=== PATIENT | female | born 1990 | race Hispanic/Latino ===

== ENCOUNTER 2017-11-07 02:09 | Emergency (ER) | payer SELFPAY ==
[~2017-11-07] VITALS: Ht 162.6 cm; Wt 122.5 kg
[2017-11-07 03:27] VITALS: BP 128/70
[2017-11-07] MEDS ORDERED: BACITRACIN ZINC 0.9GM TP ONE (03:30)
--- NOTE | 2017-11-07 05:40 | Consultation ---
DATE OF CONSULTATION: NO DICTATION, LENGTH 0:2 Job#: [id number]
== END 2017-11-07 03:33 | disposition home or self-care (01) ==
LOC: ER 02:09
DX: L03.312 Cellulitis of back [any part except buttock and flank] (principal); E05.90 Thyrotoxicosis, unspecified without thyrotoxic crisis or storm
CPT/HCPCS: 99282

== ENCOUNTER 2018-05-25 08:23 | Observation (INO) | payer OTHER ==
[~2018-05-25] VITALS: Ht 162.6 cm; Wt 118.0 kg
[2018-05-25] MEDS ORDERED: MORPHINE SULFATE 2 MG/ML SYR IV STA (09:02)
[2018-05-25] MEDS ORDERED: ONDANSETRON HCL INJ 2 MG/ML VIAL IV STA (09:02)
[2018-05-25] MEDS ORDERED: SODIUM CHLORIDE 0.9% 1000ML 1,000 ML IV SCH ×2 (11:15→11:16)
[2018-05-25] MEDS ORDERED: PIPER-TAZ 3.375 GM 50 ML IV ONE (11:15)
[2018-05-25] MEDS ORDERED: SODIUM CHLORIDE FLUSH 10 ML SYR INJ PRN (11:30)
[2018-05-25] MEDS ORDERED: MIDAZOLAM HCL 2 MG/2 ML VIAL ONE (12:28)
[2018-05-25] MEDS ORDERED: FENTANYL CITRATE/PF 100MCG/2 ML INJ ONE (12:28)
[2018-05-25] MEDS ORDERED: ONDANSETRON HCL INJ 2 MG/ML VIAL IV NR (13:00)
[2018-05-25] MEDS ORDERED: BUPIVACAINE 0.25%/EPI 30ML SDV INJ ONE (13:41)
[2018-05-25] MEDS ORDERED: GLYCOPYRROLATE INJ 1MG/ 5 ML SYR ONE (15:17)
[2018-05-25] MEDS ORDERED: NEOSTIGMINE 5 MG/5ML SYR ONE (15:17)
[2018-05-25] MEDS ORDERED: SEVOFLURANE INHAL SOLN 250 ML PEN BTL ONE (15:17)
[2018-05-25] MEDS ORDERED: DEXAMETHASONE SOD PHOS INJ 4 MG/ML VIAL ONE (15:17)
[2018-05-25] MEDS ORDERED: ONDANSETRON HCL INJ 2 MG/ML VIAL ONE (15:17)
[2018-05-25] MEDS ORDERED: PROPOFOL IV EMULSION 10 MG/ML 20 ML VIAL ONE (15:17)
[2018-05-25] MEDS ORDERED: LIDOCAINE HCL 2% LOCAL INJ 5 ML SDV VIAL INJ ONE (15:17)
[2018-05-25] MEDS ORDERED: ROCURONIUM BROMIDE 10 MG/ML 5ML VIAL ONE (15:17)
[2018-05-25] MEDS ORDERED: LEVOFLOXACIN 500MG/D5W 100ML IV ONE (15:19)
[2018-05-25 16:00] VITALS: BP 136/84
[2018-05-25] MEDS: DEXTROSE 5%/LACTATED RINGERS 1,000 ML IV SCH (16:17)
[2018-05-25] MEDS ORDERED: PANTOPRAZOLE 40 MG 10ML VIAL IV SCH (16:30)
[2018-05-25] MEDS: PIPER-TAZ 3.375 GM 50 ML IV SCH (18:46)
[2018-05-25] MEDS: HYDROCODONE/APAP 7.5MG-325MG 1 EA TAB PO PRN (18:50)
[2018-05-25 18:53] VITALS: BP 136/84
[2018-05-25] MEDS: HYDROMORPHONE 1MG/1ML INJ IV PRN ×2 (19:35→22:51)
[2018-05-25 20:00] VITALS: BP 113/65
--- NOTE | 2018-05-25 20:06 | Operative Report ---
DATE OF PROCEDURE: May 25, 2018 PREOPERATIVE DIAGNOSIS: Acute cholecystitis secondary to cholelithiasis. POSTOPERATIVE DIAGNOSIS: Acute cholecystitis secondary to cholelithiasis. PROCEDURE PERFORMED: Laparoscopic cholecystectomy. WELDER APPRENTICE COMBINATION: Simone Veloz. ESTIMATED BLOOD LOSS: Minimal. DRAINS: None. COMPLICATIONS: None. INDICATIONS AND FINDINGS: The patient is a 27-year-old female admitted for laparoscopic cholecystectomy. She was admitted through the emergency room complaining of abdominal pain since the day prior to admission, located in the epigastric region. Patient had a history of previous attacks in the past. The patient had a workup in the emergency room that revealed cholelithiasis, no evidence of choledocholithiasis, normal liver chemistry. Intraoperative findings were acute cholecystitis secondary to cholelithiasis or multiple large stones, no ductal dilatation. DESCRIPTION OF THE PROCEDURE: With the patient lying on the operative table in the supine position after administration of general anesthesia, he was prepped and draped for laparoscopic cholecystectomy. The procedure was begun by establishing a pneumoperitoneum in the right upper quadrant midclavicular line because of the fact that she was rather large with a BMI of 45. After insufflation of the pneumoperitoneum, the right upper quadrant 5 mm trocar was placed and the camera introduced under direct vision with camera. We placed a 10/11 trocar in the umbilical site and then introduced a 10 mm camera in that location. Then, we placed a 10-mm subxiphoid port and finally right anterior axillary line trocar was placed. The gallbladder was tense and it had to be decompressed to allow grasping the gallbladder, which had very thick ramirez and multiple stones. We then mobilized the gallbladder with a grasper through the fundus and another one in the neck and began the dissection until we identified the cystic duct as well as the cystic artery. The junction with the common bile duct was seen. At this point, we clipped the cystic duct distally 3 times, once proximally, and transected it. Then, we transected the cystic artery between titanium clips also and then, we began the dissection of the gallbladder using electrocautery dissection and a combination of traction, countertraction, and hydrodissection until we the gallbladder from the liver bed. We placed it in Endobag and removed it. After we did that, we closed umbilical fascia with 2 [id number] sutures with 1 Vicryl. Then, we re-insufflated the pneumoperitoneum and placed a 10 mm trocar through the umbilical port, also inspected the operative field. There was no major active bleeding, some oozing coming from the gallbladder bed fossa and then we packed that the gallbladder bed fossa with Surgicel twice and then we irrigated right upper quadrant until the effluent was clear. We inspected the operative field. There was no evidence of bile leak, bleeding, or apparent bowel injury. At that point, then we released the pneumoperitoneum and closed the wounds using 0 Vicryl for the umbilical fascia, 3-0 Vicryl was used for the subcutaneous tissue, and the skin of all the ports was closed using ramone. Marcaine 0.25% with epinephrine was given as local block at the end of the case. The patient tolerated the procedure well and was taken to recovery room in stable condition. Job#: [id number] VAS
[2018-05-26] VITALS: BP 110/64
[2018-05-26] MEDS: PIPER-TAZ 3.375 GM 50 ML IV SCH ×2 (00:50→06:34)
[2018-05-26] MEDS: DEXTROSE 5%/LACTATED RINGERS 1,000 ML IV SCH (03:23)
[2018-05-26] MEDS: HYDROCODONE/APAP 7.5MG-325MG 1 EA TAB PO PRN ×2 (03:24→08:31)
[2018-05-26 04:00] VITALS: BP 116/72
[2018-05-26 05:35] LABS: BASOPHILS % 0.2 % (0.0-1.0); EOSINOPHILS % 0.1 % (0.0-6.0); HEMOGLOBIN 11.8 g/dL (12.0-16.0); LYMPHOCYTES # (AUTO) 2.2 (1.0-3.2); LYMPHOCYTES % 18.6 % (18.0-39.1); MEAN CORPUSCULAR HGB CONC 33.7 g/dL (31-35); MEAN CORPUSCULAR VOLUME 89.1 fL (81-99); MONOCYTES # (AUTO) 0.7 (0.2-0.8); MONOCYTES % 5.8 % (4.4-11.3); NEUTROPHILS # (AUTO) 8.9 (2.1-6.9); PLATELET COUNT 256 x10e3/uL (140-360); RED BLOOD COUNT 3.93 x10e6/uL (3.6-5.1); RED CELL DISTRIBUTION WIDTH 12.6 % (11.7-14.4)
[2018-05-26 05:52] LABS: ANION GAP 11.9 mmol/L (8-16); BLOOD UREA NITROGEN 8 mg/dL (7-26); BUN/CREATININE RATIO 11 (6-25); CALCIUM 8.6 mg/dL (8.4-10.2); CARBON DIOXIDE 25 mmol/L (22-29); CHLORIDE 107 mmol/L (98-107); CREATININE, SERUM 0.74 mg/dL (0.57-1.11); EST GLOMERULAR FILTRATION RATE > 60 ML/MIN (60-); GLUCOSE 108 mg/dL (74-118); POTASSIUM 3.9 mmol/L (3.5-5.1); SODIUM 140 mmol/L (136-145)
[2018-05-26 08:00] VITALS: BP 147/76
[2018-05-26 08:31] VITALS: BP 147/76
[2018-05-26 11:55] VITALS: BP 111/65
[2018-05-26] MEDS ORDERED: TYLENOL WITH C1 EACH PO (12:11)
== END 2018-05-26 12:57 | disposition home or self-care (01) ==
LOC: FSED 08:23 → ERHOLD 11:28 → IMCU 16:56
PROVIDERS: ADMIT Surgery; ATTEND Surgery
DX: K80.00 Calculus of gallbladder with acute cholecystitis without obstruction (principal); Z87.891 Personal history of nicotine dependence
CPT/HCPCS: 36415; 47562; 76705; 80048; 80053; 81003; 81025; 85025 ×2; 88304; 96365; 96367; 96374; 96375; 96376 ×2; 99284; C1766; G0378 ×2; J1100; J1170; J1956; J2001; J2250; J2270; J2405; J2543 ×2; J3490; J7030; J7120 ×2

== ENCOUNTER 2018-09-03 21:12 | Emergency (ER) | payer OTHER ==
[~2018-09-03] VITALS: Ht 162.6 cm; Wt 117.9 kg
[~2018-09-03 21:12] MED LIST: TYLENOL WITH C1 EACH PO
[2018-09-03] MEDS ORDERED: ULTRAM50 MG PO (21:41)
[2018-09-03] MEDS ORDERED: MEDROL4 MG PO (21:44)
[2018-09-03] MEDS ORDERED: KETOROLAC TROMETHAMINE 60 MG/2 ML VIAL IM ONE (21:45)
--- NOTE | 2018-09-03 22:27 | Diagnostic Imaging Report ---
Lumbar Spine Radiographs: 3 views HISTORY: Low and mid lower back pain. COMPARISON: None available. DISCUSSION: Some of the osseous structures are partially obscured by stool and bowel gas. Hypoplastic 12th ribs. There are five non-rib bearing lumbar vertebral bodies. The alignment of the spine is within normal limits. No displaced fracture or compression deformity is identified. Cholecystectomy clips in the right upper quadrant. Disc Spaces: The disc spaces are well maintained. Facets: The facet joints are unremarkable. IMPRESSION: No acute radiographic abnormality. Signed by: DR. Radhames Zhong MD on 09/03/2018 10:23 PM
== END 2018-09-03 22:48 | disposition home or self-care (01) ==
LOC: FSED 21:12
DX: M54.5 Low back pain (principal); S39.012A Strain of muscle, fascia and tendon of lower back, initial encounter
CPT/HCPCS: 72100; 99283; J1885

== ENCOUNTER 2020-03-08 08:09 | Emergency (ER) | payer OTHER ==
[~2020-03-08] VITALS: Ht 162.6 cm; Wt 137.2 kg
[~2020-03-08 08:09] MED LIST changes: +MEDROL4 MG PO; +ULTRAM50 MG PO
--- OUTSIDE RECORDS SUMMARY | 2020-03-08 08:11 | XMS REPORT | Clinical Summary ---
Author Author [facility] Organization [facility] Address Unknown Phone Unavailable Care Team Providers Care Ict Help Desk Technician Name Role Phone Elvi Maier TRESTLE BUILDER PCP Kodi Wilder MD PCP Allergies No Known Allergies Medications End Date Status Medication Sig Dispensed Refills Start Date Active atenolol (TENORMIN) 25 mg Take 1 tablet 90 tablet 1 tabletIndications: by mouth 7 Hyperthyroidism daily. Active escitalopram (LEXAPRO) 5 Take / 30 tablet 2 0 mg tabletIndications: tablets by 7 Moderate episode of mouth daily recurrent major for 2 weeks. depressive disorder, MONI Then take 1 (generalized anxiety tablet by disorder), PTSD mouth daily.. (post-traumatic stress disorder) Active levonorgestrel-ethinyl Take 1 tablet 28 Each 11 1 estradiol (LUTERA, 28,) by mouth 7 0.1-20 mg-mcg daily. tabletIndications: Encounter for surveillance of contraceptive pills Active Problems Problem Noted Date S/P radioactive iodine thyroid ablation 10/20/2017 Hepatic steatosis 10/20/2017 Calculus of gallbladder with acute cholecystitis and obstruction 10/20/2017 Hyperthyroidism- hot thyroid nodule - will ref to end ocrinology for opinion 03/08/2017 for Radioiodine therapy Calculus of gallbladder 05/01/2013 Anxiety and depression 10/10/2012 Obese 10/10/2012 Fatigue 10/10/2012 Hypopigmented skin lesion 10/10/2012 Immunizations Name Administration Dates Next Due Influenza Vaccine 12/23/2016, 10/10/2012 Influenza Vaccine, 08/25/2017 Seasonal, Injectable Tdap Tetanus, diphtheria, 04/06/2017 acellular pertussis Vaccine Family History Medical History Relation Name Comments Seizures Maternal Aunt Diabetes Maternal Grandfather Cancer Maternal Grandmother Diabetes Maternal Grandmother Diabetes Mother also with hyperthyr oid Hypertension Mother Relation Name Status Comments Father Maternal Aunt Maternal Grandfather Maternal Grandmother Mother Alive Social History Date Tobacco Use Types Packs/Day Years Used Quit: 01/21/2017 Former Smoker Cigarettes Smokeless Tobacco: Never Used Tobacco Cessation: Counseling Given: Yes Drinks/Week oz/Week Comments Alcohol Use 0 Standard drinks or equivalent 0.0 socially Yes Food Insecurity Answer Date Recorded Within the past 12 months, you worried that your Never marla e 03/31/2017 food would run out before you got money to buy more. Within the past 12 months, the food you bought Never true 03/31/2017 just didn't last and you didn't have mo marquise to get more. Sex Assigned at Date Recorded Not on file Industry Job Start Date Occupation Not on file Not on file Not on file Travel End Travel History Travel Start No recent travel history available. Last Filed Vital Signs Not on file Plan of Treatment Health Maintenance Due Date Last Done Comments Cervical Cancer Scrn (3 02/02/2020 02/01/2017 Yrs) IMM Influenza Seasonal 07/30/2020 08/25/2017 Oct to December (>/= 19 yrs) Goals Goal Patient Associated Recent Progress Patient-Stat Aut hor Goal Type Problems ed? Have 3 meals a day Diet No Hannah Lawson LD Reduce sugar intake Diet No Hannah Lawson LD Decrease soda or juice intake Diet No Hannah Lawson LD Results Not on fileafter 03/08/2019 Insurance Type Payer Benefit Subscriber ID Effective Phone Address Plan / Dates Group [facility] SELF-PAY SELF-PAY xxxxxxxxx 2017- [phone] [id number] [place] [address] (Work)
--- NOTE | 2020-03-08 09:57 | Diagnostic Imaging Report ---
EXAMINATION: CT of the abdomen and pelvis without contrast. TECHNIQUE: Helical CT images of the abdomen and pelvis were performed from the lung bases to the lesser trochanters. No intravenous contrast was given per renal stone protocol. Coronal and sagittal reformatted images were obtained. Dose modulation, iterative reconstruction, and/or weight based adjustment of the mA/kV was utilized to reduce the radiation dose to as low as reasonably achievable. COMPARISON: None. CLINICAL HISTORY:Abdominal pain DISCUSSION: ABSENCE OF INTRAVENOUS CONTRAST DECREASES SENSITIVITY FOR DETECTION OF FOCAL LESIONS AND VASCULAR PATHOLOGY. ABDOMEN/PELVIS: LOWER THORAX: Unremarkable. HEPATOBILIARY:No focal hepatic lesions. No biliary ductal dilation. The gallbladder is normal. SPLEEN: No splenomegaly. PANCREAS: No focal masses or ductal dilatation. ADRENALS: No adrenal nodules. KIDNEYS/URETERS: No hydronephrosis, stones, or solid mass lesions. PELVIC ORGANS/BLADDER: The bladder is normal. PERITONEUM/RETROPERITONEUM: No free air or fluid. LYMPH NODES: No intra-abdominal,retroperitoneal, pelvic or inguinal lymphadenopathy. VESSELS: Limited evaluation GI TRACT: No distention or wall thickening. Appendix is normal. BONES AND SOFT TISSUES: No bony destructive lesions. No soft tissue abnormalities. IMPRESSION: No acute CT finding. Signed by: Dr. Miguel Angel Wood M.D. on 03/08/2020 9:54 AM
[2020-03-08 10:52] VITALS: BP 117/59
== END 2020-03-08 11:00 | disposition home or self-care (01) ==
LOC: ER 08:09 → FSED 11:00
DX: R10.13 Epigastric pain (principal); R10.12 Left upper quadrant pain; R11.0 Nausea; K29.00 Acute gastritis without bleeding
CPT/HCPCS: 74176; 80053; 80076; 81003; 81025; 85025; 99283